=== PATIENT | female | born 1945 | race African-American/Black ===

== ENCOUNTER 2016-09-27 11:39 | Emergency (ER) | payer MEDICARE ==
[~2016-09-27] VITALS: Ht 172.7 cm; Wt 90.7 kg
[~2016-09-27 11:39] MED LIST: AMOX875T PO; CARV12.52 PO; HYDR-971 PO; HYDR12.53 PO; LETR2.5T18 PO; LISI-334 PO; METF500T4 PO
[2016-09-27 11:51] VITALS: BP 149/70
[2016-09-27] MEDS ORDERED: PENI500T PO (12:30)
[2016-09-27] MEDS ORDERED: IBUPROFEN 600 MG TABLET. PO ONE (12:30)
[2016-09-27] MEDS ORDERED: TRAM-29 PO (12:30)
--- NOTE | 2016-09-27 12:31 | PHYS DOC ---
Past Medical History Past Medical History: Cancer, Diabetes-Type II, Hypertension, Other Additional Past Medical Histor: L BREAST CA,UTERINE CA Past Surgical History: Appendectomy, Cancer Surgery, Hysterectomy, Other Additional Past Surgical Histo: CA-L)breast masectomy and reconstructive surgery. Additional Information: Nonsmoker Alcohol Use: None Drug Use: None Adult General Chief Complaint Chief Complaint: DENTAL PROBLEM HPI HPI Patient is a 71 year old female who presents with left ventricular dental pain for 2 days. She has a tooth that was previously broken. She denies any fevers. She has tried Orajel and extra strength Tylenol home without relief of her pain. Her PCP is Dr. Radha Lane. She has plans to follow-up at [facility] after she has enough money to afford the procedure. Review of Systems Review of Systems Constitutional: Denies fever or chills. [] Eyes: Denies change in visual acuity, redness, or eye pain. [] HENT: Denies ear pain, nasal congestion or sore throat. Reports dental pain. Integument: Denies rash or skin lesions. [] Neurologic: Denies headache, focal weakness or sensory changes. [] Allergies Allergies Allergies Coded Allergies Type Severity Reaction Last Updated Verified No Known Drug Allergies 12/25/13 No Physical Exam Physical Exam Constitutional: Well developed, well nourished, no acute distress, non-toxic appearance. [] HENT: Normocephalic, atraumatic, bilateral external ears normal, oropharynx moist, no oral exudates, nose normal. Bilateral TMs without erythema or bulging. There is no posterior pharyngeal erythema or tonsillar edema. Tooth # 19 is broken with minimal surrounding gingival edema without dental abscess. Eyes: PERRLA, EOMI, conjunctiva normal, no discharge. [] Neck: Normal range of motion, no tenderness, supple, no stridor. [] Skin: Warm, dry, no erythema, no rash. [] Neurologic: Alert and oriented X 3, normal motor function, normal sensory function, no focal deficits noted. [] Psychologic: Affect normal, judgement normal, mood normal. [] Current Patient Data Vital Signs Vital Signs Date Time Temp Pulse Resp B/P Pulse Ox O2 Delivery O2 Flow Rate FiO2 09/27/16 11:51 98.4 78 20 149/70 98 Room Air 98.4 EKG EKG [] Radiology/Procedures Radiology/Procedures [] Course & Med Decision Making Course & Med Decision Making Pertinent Labs and Imaging studies reviewed. (See chart for details) [] Dragon Disclaimer Dragon Disclaimer This electronic medical record was generated, in whole or in part, using a voice recognition dictation system. Departure Departure Impression: Primary Impression: Dentalgia Disposition: HOME, SELF-CARE Condition: STABLE Referrals: NON,STAFF (PCP) Patient Instructions: Dental Pain, [id number] Additional Instructions: Please complete all the prescribed antibiotics, even if your tooth is feeling better. Please follow-up with your dentist for extraction of the affected tooth. Please take the prescribed pain medication as directed. Do not drive or operate heavy machinery while taking pain medication. Return to emergency department with any new or concerning symptoms. Scripts Tramadol Hcl (Ultram)50 Mg Dcodkh76 Mg PO Q6H PRN PAIN #20 TAB Prov:MARTINA PADRON 09/27/16 Penicillin V Potassium 500 Mg Tablet1 Tab PO TID #30 TAB Prov:MARTINA PADRON 09/27/16 MARTINA PADRON Sep 27, 2016 12:31
== END 2016-09-27 12:51 | disposition home or self-care (01) ==
LOC: ER 11:39
DX: K08.89 Other specified disorders of teeth and supporting structures (principal); K06.8 Other specified disorders of gingiva and edentulous alveolar ridge; I10 Essential (primary) hypertension; E11.9 Type 2 diabetes mellitus without complications
CPT/HCPCS: 99283

== ENCOUNTER 2017-09-03 08:05 | Emergency (ER) | payer MEDICARE | END 2017-09-03 08:44 | disposition home or self-care (01) | LOC: ER 08:05 | DX: S02.5XXA Fracture of tooth (traumatic), initial encounter for closed fracture (principal); E11.9 Type 2 diabetes mellitus without complications; I10 Essential (primary) hypertension; Y93.89 Activity, other specified; Y92.89 Other specified places as the place of occurrence of the external cause; Y99.8 Other external cause status | CPT/HCPCS: 99282; 99283 ==